=== PATIENT | male | born 1950 | race Caucasian/White ===

== ENCOUNTER → 2016-12-27 | Outpatient (CLI) | payer OTHER ==
--- NOTE | 2016-12-27 11:25 | DIAGNOSTIC IMAGING REPORT ---
BILATERAL KNEE RADIOGRAPHS CLINICAL HISTORY: Bilateral knee pain. COMPARISON: None FINDINGS: Right knee: There is mild lateral patellar tilt. Note is made of moderate to severe medial compartment joint space narrowing as well as moderate narrowing of the lateral aspect of the patellofemoral joint space with associated subchondral cystic change. There is no acute fracture or suspicious lesion. There is a possible small right knee joint effusion. Left knee: There is moderate medial compartment joint space narrowing. Subchondral cystic change/lucency is noted. There is no acute fracture or suspicious lesion. There is a small left knee joint effusion. IMPRESSION: Right knee: 1. Moderate to severe arthritis within the medial and patellofemoral compartments of the right knee. 2. Possible small right knee joint effusion. 3. No fracture. Left knee: 1. Moderate arthritis within the medial and patellofemoral compartment of the left knee. Subchondral lucencies, most evident within the medial compartment are likely related to arthritis. 2. Small left knee joint effusion. Electronically signed by: Margarito Perdomo M.D. 12/27/2016 11:24 AM Dictated Date/Time: 12/27/2016 11:20 AM
== END | disposition home or self-care (01) ==
LOC: C.RDSM 11:03
PROVIDERS: ATTEND Internal Medicine
DX: M17.0 Bilateral primary osteoarthritis of knee (principal)

== ENCOUNTER → 2017-10-26 | Outpatient (CLI) | payer OTHER | END | disposition home or self-care (01) | LOC: C.LABBC 10:43 | PROVIDERS: ATTEND Psychiatry & Neurology Neurology | DX: R27.0 Ataxia, unspecified (principal) ==

== ENCOUNTER → 2017-10-31 | Outpatient (CLI) | payer OTHER ==
[2017-10-31 11:16] LABS: BLOOD UREA NITROGEN 15 mg/dl (7-18); CREATININE 1.17 mg/dl (0.60-1.40)
== END | disposition home or self-care (01) ==
LOC: C.LABBC 08:34
PROVIDERS: ATTEND Psychiatry & Neurology Neurology
DX: Z00.00 Encounter for general adult medical examination without abnormal findings (principal)

== ENCOUNTER → 2017-11-05 | Outpatient (CLI) | payer OTHER ==
--- NOTE | 2017-11-05 08:26 | DIAGNOSTIC IMAGING REPORT ---
MRI OF THE BRAIN WITHOUT IV CONTRAST INTERNAL AUDITORY CANAL PROTOCOL CLINICAL HISTORY: Vertigo. Ataxia. COMPARISON STUDY: No priors. TECHNIQUE: MRI of the brain was performed utilizing various T1 and T2-weighted sequences in the axial, sagittal, and coronal planes. IV contrast was not administered for this examination. Additional high-resolution imaging was performed through the skull base without IV contrast to assess the internal artery canals. The patient became claustrophobic and could not physician the examination. Postcontrast imaging was not performed. FINDINGS: Brain parenchyma: There are age-related involutional changes noting mild subcortical and periventricular microangiopathic disease. There is no hemorrhage or mass effect. There is no restricted diffusion to suggest acute ischemia. Cobb-white matter differentiation is preserved. No extra-axial fluid collection is seen. The cerebellar tonsils are normal in configuration. Ventricles, sulci, and cisterns: Prominent secondary to involutional change. Pituitary and sella: Unremarkable. Interlobular canals: There is no evidence of mass lesion in the cerebellopontine angle or along the internal auditory canal bilaterally. The 7th and 8th cranial nerves are normal as visualized. The middle ear structures are grossly unremarkable. Intracranial vasculature: Normal flow voids are maintained at the skull base. Orbits: The bony orbits are grossly intact. Orbital contents are normal in appearance. Sinuses and mastoids: Clear. Calvarium: Unremarkable. Cervical cord: Partially visualized cervical spinal cord is normal in morphology and signal intensity. IMPRESSION: 1. The patient became claustrophobic and discontinued the examination. Contrast-enhanced sequences were not obtained. 2. No acute intracranial abnormality is seen. 3. Unremarkable unenhanced assessment of the internal auditory canals. Electronically signed by: Michael Hua M.D. 11/05/2017 8:25 AM Dictated Date/Time: 11/05/2017 8:16 AM
== END | disposition home or self-care (01) ==
LOC: C.MRI 07:25
PROVIDERS: ATTEND Psychiatry & Neurology Neurology
DX: R42 Dizziness and giddiness (principal); R27.0 Ataxia, unspecified

== ENCOUNTER 2019-08-27 06:08 | Inpatient (IN) ==
--- NOTE | 2019-08-05 16:08 | PAT Medication Instructions ---
Medication Instructions Date of Service August 05, 2019 Home Medications aspirin 81 mg PO QAM krill oil 500 mg PO QAM losartan-hydrochlorothiazide 1 tab PO HS omeprazole magnesium [Prilosec OTC] 20 mg PO QAM simvastatin 20 mg PO HS STOP taking 2 weeks before surgery (or as soon as possible if surgery is within 2 weeks) krill oil 500 mg PO QAM Take morning of surgery With a small sip of water, OTHERWISE NOTHING TO EAT OR DRINK AFTER MIDNIGHT: aspirin 81 mg PO QAM omeprazole magnesium [Prilosec OTC] 20 mg PO QAM Take evening before surgery losartan-hydrochlorothiazide 1 tab PO HS simvastatin 20 mg PO HS Other Notes If you have any questions please call us at [phone] or [phone] or [phone] or [phone]
--- NOTE | 2019-08-06 15:10 | Anesthesiology Consultation ---
Date of Service August 06, 2019 Assessment & Plan (1) Encounter for pre-operative examination: Chart Review Chart Review: Pending: Refer to Additional Notes / Consult section (pending preop testing (labs, EKG, CXR)) and Patient seen in Pre Admission Testing Teaching & Discussion Pre-Anesthesia Teaching/Discussion Notes: Instructed NPO after midnight before surgery,except medications with 15 cc of water. Medication instructions provid ed according to the PAT guidelines. History Surgery Operation Date: 08/27/19 07:00 Proposed Procedures p Right Total Knee Arthroplasty - Alton Vergara MD Height/Weight Height: 5 ft 9 in Weight: 93.8 kg Allergies Allergy/AdvReac Type Severity Reaction Status Date / Time No Known Allergies Allergy Verified 07/25/19 10:00 Medications Home Medications Medication Instructions Recorded Confirmed Last Taken aspirin 81 mg PO QAM 07/25/19 07/25/19 Unknown krill oil 500 mg PO QAM 07/25/19 07/25/19 Unknown losartan-hydrochlorothiazide 1 tab PO HS 07/25/19 07/25/19 Unknown omeprazole magnesium [Prilosec OTC] 20 mg PO QAM 07/25/19 07/25/19 Unknown simvastatin 20 mg PO HS 07/25/19 07/25/19 Unknown Past Medical History Medical History GERD (gastroesophageal reflux disease) controlled Gout Hyperlipidemia Hypertension Obesity Osteoarthritis Restless leg syndrome Sleep apnea "mild"- could not tolerate device Exercise / Class Metabolic Activity II 4-5 Yardwork/Stairs/Walk up hill (one flight of stairs (no chest pain, no sob)) Past Family History Family History Other No significant family history Past Surgical History Surgical History History of arthroscopy RT/LEFT KNEE History of colonoscopy History of esophagogastroduodenoscopy (EGD) [place] teeth removed Past Anesthesia History No Hx of Anesthesia Complications and No Family Hx of Anesthesia Complications History of PONV No Hx of PONV and Hx of Motion Sickness (+ vertigo) Social History Smoking Status: Never smoker Do You Dip or Chew Tobacco: No Hx Alcohol Use: Yes Alcohol type: hard liquor alcohol intake frequency: holidays/special occasions only Alcohol Intake Frequency Comment: MIXED DRINK Hx Substance Use: No substance use type: does not use Review of Systems Reflux controlled. Patient denies chest pain, shortness of breath, dyspnea on exertion, cough, wheezing, palpitations. Physical Exam Vital Signs VITALS BP 130/85 P 86 TEMP 97.9 SP02 93%RA RESP 18 PHYSICAL Full neck and c-spine range of motion. Full TMJ range of motion. TMD 3.5 finger breaths Mallampati Score 3 (small oral opening) Dentition: partial on upper, several caps Lungs: clear throughout to auscultation Cardiac: regular rate and rhythm, no murmurs noted Spine: normal Carotid arteries: negative bruit Extremities: no edema
--- NOTE | 2019-08-06 15:56 | XRay Report ---
XR chest Pre-admission PA/Lat CLINICAL HISTORY: 68 years-old Male presenting with preoperative evaluation. TECHNIQUE: PA and lateral views of the chest were obtained. COMPARISON: None. FINDINGS: Cardiac silhouette top normal in size. Opacity at the left apex on frontal view, which is not corrobo rated on the lateral. Lungs and pleural spaces otherwise clear. Degenerative changes of the thoracic spine. Upper abdomen normal. IMPRESSION: 1. Apparent opacity at the cardiac apex may relate to pericardial fat pad. No acute cardiopulmonary disease. Follow-up radiograph in 3-6 months could be obtained to ensure stability. Electronically signed by: Solitario Guillaume M.D. 08/06/2019 3:55 PM
[2019-08-06 15:57] LABS: Basophils # (auto) 0.06 K/uL (0-0.2); Basophils % (auto) 0.7 %; Eosinophils # (auto) 0.26 K/uL (0-0.5); Eosinophils % (auto) 3.2 %; Hematocrit (blood only) 46.1 % (42-52); Hemoglobin 16.4 g/dL (14.0-18.0); Immature Granulocytes # (auto) 0.01 K/uL (0.00-0.02); Immature Granulocytes % (auto) 0.1 %; Lymphocytes # (auto) 3.01 K/uL (1.2-3.4); Mean Corpuscular Hgb Conc 35.6 g/dL (32-36); Mean Platelet Volume 9.5 fL (7.4-10.4); Monocytes # (auto) 0.89 K/uL (0.11-0.59); Monocytes % (auto) 10.9 %; Neutrophils # (auto) 3.91 K/uL (1.4-6.5); Neutrophils % (auto) 48.1 %; Platelet Count 220 K/uL (130-400); RDW Coefficient of Variation 12.9 % (11.5-14.5); RDW Standard Deviation 42.4 fL (36.4-46.3); Red Blood Count 5.12 M/uL (4.7-6.1); White Blood Count 8.14 K/uL (4.8-10.8)
[2019-08-06 16:10] LABS: Calcium 9.5 mg/dl (8.5-10.1); Creatinine Clr Calc Pharmacy 68.8 ml/min; Est GFR (African American) 75.9; Est GFR (Non-African American) 65.5
[2019-08-06 16:13] LABS: Partial Thromboplastin Time 27.1 Seconds (21.0-31.0); Prothrombin Time 10.3 Seconds (9.0-12.0)
[2019-08-06 16:19] LABS: Appearance Urine Clear (Clear); Bilirubin Urine Negative (Negative); Blood Urine Negative (Negative); Color Urine Yellow; Glucose Urine UA Negative (Negative); Ketones Urine Negative (Negative); Leukocyte Esterase Urine Negative (Negative); Nitrite Urine Negative (Negative); Protein Urine Negative (Negative); Specific Gravity Urine 1.021 (1.000-1.030); Urobilinogen Urine Negative (Negative)
--- NOTE | 2019-08-12 16:38 | History and Physical Report ---
DATE OF ADMISSION: 08/27/2019 CHIEF COMPLAINT: Right knee pain. HISTORY OF PRESENT ILLNESS: This 68-year-old white male presents to the office with complaints of right knee pain that has been ongoing for several years. It was initially managed with corticosteroid injections and Tylenol as well as Meloxicam with fair relief. Those treatments are no longer working. Pain is worse with weightbearing. It is affecting his ADLs. He elects to proceed with right total knee arthroplasty in hopes of alleviating his discomfort. Preoperative imaging has been obtained. No numbness or tingling. No locking or buckling. Pain is worse medially. He elects to proceed with right total knee arthroplasty in hopes of alleviating his discomfort. PAST MEDICAL HISTORY: Significant for hypertension, elevated cholesterol, sleep apnea, GERD, osteoarthritis, actinic keratosis and history of gout. PREVIOUS SURGERIES: Right knee arthroscopy with meniscectomy in 2013, left knee arthroscopy with meniscectomy in 2003, colonoscopy x2. ALLERGIES: NKDA. CURRENT MEDICATIONS: Aspirin 81 mg daily, colchicine 0.6 mg p.o. daily, Flonase nasal spray 2 sprays in each nostril daily, HCTZ losartan 12.5 mg/50 mg p.o. daily, omeprazole 20 mg p.o. q.a.m., simvastatin 20 mg p.o. at bedtime. FAMILY HISTORY: Significant for CVA, hypertension, prostate cancer, and stroke. SOCIAL HISTORY: The patient is . Retired. No tobacco use. No ETOH use. REVIEW OF SYSTEMS: A total of 10 systems are reviewed and are significant only for above stated conditions. PHYSICAL EXAMINATION: GENERAL: Well-developed, well-nourished elderly white male in no acute distress. Sitting in a chair. Alert and oriented. SKIN: Warm and dry with good turgor. No rashes or lesions. No ecchymosis or erythema. HEENT: Normocephalic, atraumatic. Eyes PERRLA, EOMI. Nares patent bilaterally without turbinate enlargement. Oropharynx without erythema or exudate. No lesions noted. Uvula midline. Oral mucosa moist, fillings and caps are noted. Partial upper denture plate noted. HEART: RRR. No MGR. LUNGS: Clear to auscultation bilaterally. No crackles, rhonchi or wheezing. Good air movement. ABDOMEN: Bowel sounds present x4, soft, nontender. No organomegaly. No masses. MUSCULOSKELETAL: Right knee has no intra-articular effusion. Varus alignment. Stable collateral ligaments. He has focal discomfort with palpation over the medial and lateral joint lines. Medial is worst. No defect in the patellar tendon or quadriceps tendon. No crepitus with motion. Ambulates with a mildly antalgic gait. NEUROLOGIC: Gross sensation is intact across both lower extremities by soft touch. Peripheral pulses are 2+. Cranial nerves II-XII are intact. DATA: Radiographic imaging previously obtained shows bicompartmental DJD of the right knee. Medial is worst. Periarticular osteophytes, subchondral sclerosis, and joint space narrowing are all present. IMPRESSION: Right knee end-stage degenerative joint disease. PLAN: Postoperative prescriptions for Percocet and Coumadin will be provided at discharge from the hospital. Anticipate discharge to home with home health services. Preoperative lab work, EKG, and chest x-ray have been ordered. These will be done at the hospital. He has an appointment to see his PCP for medical clearance. He has access to a cane and walker already. Call with any other concerns.
[~2019-08-27 06:08] MED LIST: CEFAZOLIN 2000MG 2,000 MG/15 ML SYR IV SCH; LR 500ML BOLUS IV SCH; ROPIVACAINE 0.5% HCL/PF 150 MG, BUPIVACAINE 0.5% MPF 30 ML, EPINEPHrine 0.15 MG, Ketoro... INFIL SCH; TRANEXAMIC ACID 1,000 MG **IV Pre-op IV SCH
[2019-08-27] MEDS ORDERED: BUPIVACAINE 0.5 % 5 MG/1 ML PF 10ML VIAL ONE (06:24)
[2019-08-27] MEDS ORDERED: ROPIVACAINE 0.5% 5 MG/ML 30 ML VIAL ONE (06:25)
--- NOTE | 2019-08-27 06:36 | History & Physical Bridge Note ---
Date of Service August 27, 2019 History & Physical Bridge Note I have examined the patient, reviewed the History & Physical and in the interval since the performance of the History & Physical I have noted the following changes of clinical significance:consent obtained. no changes noted
[2019-08-27] MEDS: LR 60ML/HR IV SCH ×2 (06:38→06:57)
[2019-08-27] MEDS ORDERED: LIDOCAINE HCL 2% 2 ML VIAL/AMP(20MG/ML) INFIL ONE (07:35)
[2019-08-27] MEDS ORDERED: MIDAZOLAM HCL 1 MG/ML 2ML VIAL ONE (07:35)
[2019-08-27] MEDS ORDERED: PROPOFOL IV EMULSION 10 MG/ML 20 ML VIAL IV ONE (07:35)
[2019-08-27] MEDS ORDERED: HYDROmorphone INJ 1 MG/ML SYRINGE IV PRN (08:25)
[2019-08-27] MEDS ORDERED: ONDANSETRON INJ 2 MG/ML 2 ML VIAL IV PRN ×2 (08:25→12:06)
[2019-08-27] MEDS ORDERED: ePHEDrine sulfate 50 MG/ML AMP IV PRN (08:25)
[2019-08-27] MEDS ORDERED: ATROPINE SULFATE 0.1 MG/ML 10ML SYR IV PRN (08:25)
[2019-08-27] MEDS ORDERED: KETOROLAC 30 MG/ML VIAL IV PRN (08:25)
[2019-08-27] MEDS ORDERED: ORTHO JOINT ANESTHETIC ONE (08:57)
[2019-08-27] MEDS ORDERED: PHENYLEPHRINE 100MCG/ML 5ML SYR ONE (09:47)
[2019-08-27] MEDS ORDERED: ePHEDrine sulfate 50 MG/ML SYR ONE (09:47)
--- NOTE | 2019-08-27 10:42 | Post Operative Brief Note ---
Immediate Post Op Note v1 Date of Surgery August 27, 2019 Pre & Post Diagnosis Operation Date: 08/27/19 08:50 Pre-Op Diagnosis: Right Knee Degenerative Joint disease Post-Op Diagnosis: Right Knee Degenerative Joint disease I identified the patient and participated in the time-out.: Yes Procedure Operation Date: 08/27/19 08:50 Actual Procedures p Right Total Knee Arthroplasty(Right) - Alton Vergara MD Surgeon [facility] Blood Loss 25 Findings Consistent with Post-Op Diagnosis
--- NOTE | 2019-08-27 10:54 | Operative Report ---
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 He had tried conservative care measures including oral pain medication, oral anti-inflammatories, and activity modification, without significant relief. He elected to proceed with surgical intervention after being educated about potential risks and outcomes. Preoperative imaging was obtained. Description of Procedure Patient was administered a spinal anesthetic and then taken to the operating room where he was given sedation. He was prepped and draped in the usual sterile fashion. Please see Dr. Vergara's operative report for specifics of the procedure. I was present for the entire case from initial patient positioning through final wound closure. Assistance was provided in tissue retraction, hemostasis, trial implant placement, final implant placement, and final wound closure. Patient was taken to the recovery room in satisfactory condition. I attest to the content of the Intraoperative Record and any orders documented therein. Any exceptions are noted below.
--- NOTE | 2019-08-27 11:13 | Operative Report ---
DATE OF OPERATION: 08/27/2019 SURGEON: Alton Vergara MD. INSIDE METER TESTER: Dr. Maldonado. SECOND INSIDE METER TESTER: Tramaine Matthew PA-C. PREOPERATIVE DIAGNOSIS: Osteoarthritis with flexion varus deformity of the right knee. OPERATION PERFORMED: Cemented right total knee replacement. PERIOPERATIVE SITUATION: Medically cleared male with intractable bilateral knee pain, wants to start with a right total knee replacement. He has significant varus flexion deformity. His x-rays reveal tricompartmental disease. DESCRIPTION OF PROCEDURE: The patient was appropriately identified, site verified, consent verified. Antibiotics confirmed as being given. The right lower extremity was prepped and draped in usual routine fashion. Tourniquet inflated to 300 mmHg after exsanguination of limb with a rubber Esmarch bandage for a total of 53 minutes. Midline exposure utilized. Parapatellar arthrotomy performed. Synovectomy completed, osteophytes resected. Distal femur entered. Cruciates resected. Tibia subluxated. Both menisci resected. Femur then resected 12 mm, tibia then resected 4 mm, the extension gap was excellent. Distal femur was then sized between a 3 and a 4, was measured 4, cut 3. The tibia was a size 3. Flexion gap was good. Box cut was then made and the size 3 femur fit well, the size 3 tibial tray was then broached and reamed and then a 17.5 spacer fit very well at the end of the permanent size. That offered the most mid range stability with no extension loss. The patella was then sized to 38, it was resected leaving 15 mm. Seating holes made and the trial tracked well. Orthomix was injected posteriorly and along the anterior aspect of the joint. The wound was irrigated with Betadine and Pulsavac and then the permanent cemented in position in the order of tibia, femur and patella. After 12 minutes, the tourniquet was deflated. Minor bleeding points were controlled with electrocautery. After 14 minutes, the knee was then flexed. There was no cement removal required. The trial liner was removed, the permanent liner seated, knee reduced and closed in 30-40 degrees of flexion with #2 Vicryl, 2-0 Vicryl and stainless steel clips. Appropriate dressing applied. The patient was then transferred to recovery room in satisfactory condition having tolerated the procedure well. SUMMARY OF IMPLANTS: Size 3 right posterior cruciate substituting femur, mobile bearing tray size 3, size 3 spacer, posterior cruciate substituting 17.5 mm thick, oval dome 3 peg patella size 38, 2 bags of [place] G cement. ESTIMATED BLOOD LOSS: 25 mL. PATHOLOGY: Pending on bone. DEEP VENOUS THROMBOSIS PROPHYLAXIS: With Coumadin. CRYSTALLOID: Per anesthesia. I attest to the content of the Intraoperative Record and any orders documented therein. Any exception s are noted below.
--- NOTE | 2019-08-27 11:23 | Operative Report ---
Post Operative Report Pre & Post Diagnosis Operation Date: 08/27/19 08:50 Pre-Op Diagnosis: Right Knee Degenerative Joint disease Post-Op Diagnosis: Right Knee Degenerative Joint disease I identified the patient and participated in the time-out.: Yes Procedure Operation Date: 08/27/19 08:50 Actual Procedures p Right Total Knee Arthroplasty(Right) - Alton Vergara MD Surgeon Alton Vergara MD Nurse Gynecology Erica rojas Estimated Blood Loss 25 Findings Consistent with Post-Op Diagnosis Specimens as per procedure notes Complications none Disposition Accompanied Patient To Recovery: Yes Disposition: Recovery Room Description of Procedure Supine, standard prep and drape, tourniquet, time-out Right Total Knee Arthroplasty Please see Dr Vergara's procedure notes for specific details I was present throughout the case, assisted for wound closure and transferred the patient to PACU in stable condition I attest to the content of the Intraoperative Record and any orders documented t herein. Any exceptions are noted below.
--- NOTE | 2019-08-27 11:24 | Progress Note ---
DATE: 08/27/2019 SUBJECTIVE: Status post right total knee replacement. The patient denies any chest pain, shortness of breath, fever, chills, nausea, vomiting or headache. OBJECTIVE: Vital signs are stable, he is afebrile. Neurovascular check is limited by spinal is wearing off. Postop x-rays look excellent. ASSESSMENT: Doing well. Continue postop care pathway. Have case management see him prepared for discharge tomorrow. Deep venous thrombosis prophylaxis per protocol.
--- NOTE | 2019-08-27 11:26 | XRay Report ---
TWO VIEWS RIGHT KNEE CLINICAL HISTORY: Postoperative examination. FINDINGS: AP and crosstable lateral portable views of the right knee are obtained. A right knee arthr oplasty is in near anatomic alignment. There has been undersurface remodeling of the patella. No acut e fracture is seen. There are expected postoperative changes around the knee including skin clips, so ft tissue edema, and subcutaneous gas. IMPRESSION: Expected postoperative changes status post right knee arthroplasty. No acute fracture is seen. Electronically signed by: Michael Hua M.D. 08/27/2019 11:24 AM
--- NOTE | 2019-08-27 11:27 | Discharge Summary ---
DATE OF POTENTIAL DISCHARGE: 08/28/2019 CHIEF COMPLAINT: Right knee pain. HISTORY OF PRESENT ILLNESS: The patient underwent elective right total knee replacement. Hospital course has been uneventful to date. He tolerated the procedure well. Postop x-rays look excellent. He denies any chest pain, shortness of breath, fever, chills, nausea, vomiting or headache. PAST MEDICAL HISTORY: Remarkable for hypertension, elevated cholesterol, sleep apnea, GERD, osteoarthritis, actinic keratosis and history of gout. PAST SURGICAL HISTORY: Include right knee arthroscopy, meniscectomy, left knee arthroscopy, meniscectomy, colonoscopies. ALLERGIES: None. PREADMISSION MEDICATIONS: Include aspirin, colchicine, Flonase, hydrochlorothiazide, losartan, omeprazole, simvastatin. He will continue all those medications and add Coumadin to keep INR 1.8-2.2. FAMILY HISTORY: Remarkable for CVA, hypertension, prostate cancer and stroke. SOCIAL HISTORY: Reveals he is , retired. No tobacco or alcohol use. REVIEW OF SYSTEMS: As noted above is negative. ASSESSMENT: Postoperative x-rays look excellent, AP and lateral. ASSESSMENT: Clinically, doing well. Will discharge to home tomorrow. Case management to evaluate. Coumadin to keep INR 1.8-2.2.
--- NOTE | 2019-08-27 11:38 | Anesthesiology Progress Note ---
Date of Service August 27, 2019 Anesthesia Post Procedure Vital Signs Vital Signs: Temp Pulse Pulse Resp BP Pulse Ox 08/27/19 11:35 36.6 C 74 16 112/74 96 08/27/19 11:25 83 16 109/75 97 08/27/19 11:15 81 15 87/66 L 95 08/27/19 11:05 81 12 105/68 96 08/27/19 10:55 99 H 18 109/59 L 96 08/27/19 10:49 37.1 C 90 16 96/66 L 98 08/27/19 06:41 36.9 C 112 H 16 154/87 H 96 Pain Intensity Right Knee: Pain Intensity: 0 Transfer of Care Handoff Completed per policy Notes Mental Status: alert / awake / arousable Patient Amnestic to Procedure: Yes Nausea / Vomiting: adequately controlled Pain: adequately controlled Airway Patency, RR, SpO2: stable & adequate BP & HR: stable & adequate Hydration State: stable & adequate Anesthetic Complications: no major complications apparent
[2019-08-27] MEDS ORDERED: ALUMINUM/MAGNESIUM SUSP 30 ML UDC PO PRN (12:06)
[2019-08-27] MEDS ORDERED: DiphenhydrAMINE HCL 50 MG/ML VIAL IV PRN (12:06)
[2019-08-27] MEDS ORDERED: SODIUM CHLORIDE 0.9% 1000ML 1,000 ML IV SCH (12:06)
[2019-08-27] MEDS ORDERED: HYDROmorphone INJ 0.5 MG/0.5 ML SYR IV PRN (12:06)
[2019-08-27] MEDS ORDERED: BISACODYL 10 MG SUPP PR PRN (12:06)
[2019-08-27] MEDS ORDERED: TAMSULOSIN HCL 0.4 MG CAP PO PRN (12:06)
[2019-08-27] MEDS ORDERED: NALOXONE HCL 0.4 MG/1 ML VIAL/CARP IV PRN (12:06)
[2019-08-27] MEDS ORDERED: METOCLOPRAMIDE HCL INJ 5 MG/ML 2 ML VIAL IV PRN (12:06)
[2019-08-27] MEDS ORDERED: MAGNESIUM HYDROXIDE SUSP 30 ML UDC PO PRN (12:06)
[2019-08-27] MEDS ORDERED: OXYCODONE HCL IR 5 MG TAB (IMMEDIATE RELEASE) PO PRN (12:06)
[2019-08-27] MEDS: ORTHO WARFARIN NOMOGRAM SCH (12:45)
[2019-08-27] MEDS: KETOROLAC TROMETHAMINE 15 MG/ML VIAL IV SCH ×2 (13:00→18:18)
[2019-08-27] MEDS: ACETAMINOPHEN 500 MG TAB PO SCH ×2 (13:00→21:34)
[2019-08-27] MEDS ORDERED: WARFARIN SOD 5 MG TAB PO SCH (16:00)
[2019-08-27] MEDS ORDERED: TRANEXAMIC ACID 1,000 MG in 0.9 % SODIUM CHLORIDE 100 ML IV SCH (16:56)
[2019-08-27] MEDS: CEFAZOLIN 2000MG 2,000 MG/15 ML SYR IV SCH (17:20)
[2019-08-27] MEDS: FERROUS GLUCONATE 324 MG TAB PO SCH (18:18)
[2019-08-27] MEDS: ASCORBIC ACID 500 MG TAB PO SCH (18:18)
[2019-08-27] MEDS ORDERED: SENNA 8.6 MG TAB PO SCH (21:00)
[2019-08-27] MEDS ORDERED: LOSARTAN/HCTZ 50/12.5MG TAB PO SCH (21:00)
[2019-08-27] MEDS ORDERED: SIMVASTATIN 20 MG TAB PO SCH (21:00)
[2019-08-27] MEDS: DOCUSATE SODIUM 100 MG CAP PO SCH (21:33)
[2019-08-28] MEDS: CEFAZOLIN 2000MG 2,000 MG/15 ML SYR IV SCH (01:57)
[2019-08-28] MEDS: ACETAMINOPHEN 500 MG TAB PO SCH (06:12)
[2019-08-28] MEDS: KETOROLAC TROMETHAMINE 15 MG/ML VIAL IV SCH ×2 (06:13)
[2019-08-28 06:14] LABS: Hematocrit (blood only) 39.3 % (42-52); Hemoglobin 13.7 g/dL (14.0-18.0); Mean Corpuscular Hemoglobin 31.3 pg (25-34); Mean Corpuscular Hgb Conc 34.9 g/dL (32-36); Mean Corpuscular Volume 89.7 fL (80-100); Mean Platelet Volume 9.6 fL (7.4-10.4); Platelet Count 211 K/uL (130-400); RDW Coefficient of Variation 12.7 % (11.5-14.5); RDW Standard Deviation 41.2 fL (36.4-46.3); Red Blood Count 4.38 M/uL (4.7-6.1); White Blood Count 16.96 K/uL (4.8-10.8)
[2019-08-28 06:20] LABS: INR 1.1 (0.9-1.1)
[2019-08-28 06:48] LABS: BUN Creatinine Ratio 18.5 (10-20); Calcium 9.3 mg/dl (8.5-10.1); Creatinine Clr Calc Pharmacy 72.1 ml/min; Est GFR (African American) 81.1; Potassium 3.8 mmol/L (3.5-5.1)
[2019-08-28] MEDS ORDERED: dexAMETHasone 10 MG in SYRINGE 0 ML IV SCH (08:00)
[2019-08-28] MEDS: FERROUS GLUCONATE 324 MG TAB PO SCH (08:04)
[2019-08-28] MEDS: ASCORBIC ACID 500 MG TAB PO SCH (08:04)
[2019-08-28] MEDS: DOCUSATE SODIUM 100 MG CAP PO SCH (08:04)
--- NOTE | 2019-08-28 08:24 | Progress Note ---
DATE: 08/28/2019 SUBJECTIVE: Postop day #1 status post right total knee replacement. The patient is in good spirits. He denies any chest pain, shortness of breath, fever, chills, nausea, vomiting or headache. OBJECTIVE: Vital signs are stable. He is afebrile. Hematocrit stable at 39 range. INR is 1.1. Wound dressing clean, dry and intact. Dressing reinforced with a new Kerlix of the original deep dressing on since there was no drainage and put [place] DONALD stocking on. He will keep that on until Sunday. ASSESSMENT: Coumadin per nomogram today. Discharge on 4 mg Coumadin. Follow up in 2 weeks for staple removal. Knee immobilizer for another 24-48 hours when he is comfortable, bearing full weight. Continue with heel prop extension exercises and range of motion to tolerance up to 90 degrees. A formal PT roughly 10-14 days.
[2019-08-28] MEDS: ORTHO WARFARIN NOMOGRAM SCH (08:50)
[2019-08-28] MEDS ORDERED: MULTIVITAMIN TAB PO SCH (09:00)
[2019-08-28] MEDS ORDERED: ASPIRIN 81 MG ECTAB PO SCH (09:00)
[2019-08-28] MEDS ORDERED: WARFARIN SOD 5 MG TAB PO SCH (16:00)
== END 2019-08-28 10:33 | disposition home health service (06) | DRG 470 ==
LOC: ASU 06:08 → 3E 10:56

== ENCOUNTER 2024-07-07 06:55 | Observation (INO) ==
--- NOTE | 2024-06-03 10:23 | PAT Medication Instructions ---
Medication Instructions Date of Service June 03, 2024 Home Medications aspirin 81 mg tablet,delayed release 81 mg PO QAM omeprazole magnesium 20 mg tablet,delayed release (Prilosec OTC) 20 mg PO QAM hydrochlorothiazide 12.5 mg tablet 12.5 mg PO HS losartan 50 mg tablet 50 mg PO HS ciclopirox 8 % topical solution 1 applic topical DAILY PRN fluticasone propionate 50 mcg/actuation nasal spray,suspension 2 spray intranasal DAILY PRN krill 350 mg-omega-3 90 mg-dha 24 mg-epa 50 [id number] capsule 1 cap PO QAM multivitamin 1 tab PO QAM simvastatin 20 mg tablet 20 mg PO HS Continue as directed fluticasone propionate 50 mcg/actuation nasal spray,suspension 2 spray intranasal DAILY PRN(if needed) ASK your prescriber and surgeon aspirin 81 mg tablet,delayed release 81 mg PO QAM STOP taking 2 weeks before surgery (or as soon as possible if surgery is within 2 weeks) krill 350 mg-omega-3 90 mg-dha 24 mg-epa 50 [id number] capsule 1 cap PO QAM STOP taking 24 hours before surgery ciclopirox 8 % topical solution 1 applic topical DAILY PRN DO NOT take the morning of surgery multivitamin 1 tab PO QAM Take morning of surgery With a small sip of water, OTHERWISE NOTHING TO EAT OR DRINK AFTER MIDNIGHT: omeprazole magnesium 20 mg tablet,delayed release (Prilosec OTC) 20 mg PO QAM Take evening before surgery hydrochlorothiazide 12.5 mg tablet 12.5 mg PO HS losartan 50 mg tablet 50 mg PO HS simvastatin 20 mg tablet 20 mg PO HS Other Notes If you have any questions please call us at [phone] or [phone] or [phone] or [phone]
--- NOTE | 2024-06-10 10:30 | Anesthesiology Consultation ---
Date of Service June 10, 2024 Assessment & Plan (1) Encounter for pre-operative examination: - awaiting PCP clearance with Ashanti Jean PA-C. - Case discussed in detail with Dr. Owens who agreed with patient needing a PCP clearance prior to surgery. Surgeon's office and patient made aware. Patient denied questions or concerns. - Outpatient joint assessment: Patient is currently scheduled for inpatient pathway. If re-evaluated and patient/surgeon requests outpatient pathway, patient is not ideal candidate for outpatient joint program from anesthesia standpoint. Chart Review Chart Review: Pending: Refer to Additional Notes / Consult section and Patient seen in Pre Admission Testing Teaching & Discussion Pre-Anesthesia Teaching/Discussion Notes: Instructed NPO after midnight before surgery, except medications with 15 cc of water. Medication instructions provided according to the PAT guidelines. History Surgery Operation Date: 07/07/24 09:00 Proposed Procedures p Left Total Knee Arthroplasty - Xavier Rucker, Height/Weight Height: 5 ft 9 in Weight: 89.9 kg Allergies Allergy/AdvReac Type Severity Reaction Status Date / Time No Known Allergies Allergy Verified 05/30/24 09:03 Medications Home Medications Medication Instructions Recorded Confirmed Last Taken aspirin 81 mg tablet,delayed 81 mg PO QAM 07/25/19 05/30/24 08/24/19 08:00 release omeprazole magnesium 20 mg 20 mg PO QAM 07/25/19 05/30/24 08/26/19 22:00 tablet,delayed release (Prilosec OTC) hydrochlorothiazide 12.5 mg tablet 12.5 mg PO HS 10/09/23 05/30/24 Unknown losartan 50 mg tablet 50 mg PO HS 10/09/23 05/30/24 Unknown ciclopirox 8 % topical solution 1 applic topical DAILY PRN Toe 05/30/24 05/30/24 Unknown Fungus fluticasone propionate 50 2 spray intranasal DAILY PRN 05/30/24 05/30/24 Unknown mcg/actuation nasal Congestion spray,suspension krill 350 mg-omega-3 90 mg-dha 24 1 cap PO QAM 05/30/24 05/30/24 Unknown mg-epa 50 mj-hxhznbw-wimhq capsule multivitamin 1 tab PO QAM 05/30/24 05/30/24 Unknown simvastatin 20 mg tablet 20 mg PO HS 05/30/24 05/30/24 Unknown Past Medical History Medical History GERD (gastroesophageal reflux disease) controlled, stable per pt Hx of basal cell carcinoma (~2022) nose-s/p excision Hx of gout "No attack for 4-5 years" Hx of syncope 10/2023 "Had testing completed (30 day monitor) and was all normal." denies additional episodes of syncope. Hyperlipidemia Hypertension controlled, stable per pt Obesity Osteoarthritis Restless leg syndrome Sleep apnea "mild"- no device Patient denies h/o stroke, seizures, heart attack, heart failure, DM, blood clots/DVTs or blood transfusions. Exercise / Class Metabolic Activity II 4-5 Yardwork/Stairs/Walk up hill (denies chest discomfort or shortness of breath with one flight of stairs) Past Family History Family History Other No significant family history Past Surgical History Surgical History History of arthroplasty of right knee History of arthroscopy Bilateral knees History of colonoscopy History of esophagogastroduodenoscopy (EGD) Hx of eye surgery Right - Retina [place] teeth removed Past Anesthesia History No Hx of Anesthesia Complications and No Family Hx of Anesthesia Complications History of PONV No Hx of PONV and Hx of Motion Sickness Social History Smoking Status: Never smoker Do You Dip or Chew Tobacco: No Hx Alcohol Use: No Hx Substance Use: No substance use type: does not use Review of Systems Patient denies chest pain, shortness of breath, dyspnea on exertion, fever, chills, cough, wheezing, or palpitations. Physical Exam Vital Signs Vitals BP 132/82 P 105 (Patient states often has elevated HR in clinical settings due to anxiety) TEMP 98.5 SP02 95% on RA RESP 18 Physical Patient resting comfortably in chair in no acute distress, alert and oriented, responding appropriately throughout visit Full cervical extension range of motion without pain TMD 3.5 finger breadths Mallampati Score 2 Dentition: removable partial and several caps, denies chipped or loose teeth, crowns, implants or bridges Lungs: normal respiratory effort. Good air movement, clear throughout to auscultation, no adventitious breath sounds Cardiac: regular rate and rhythm, no murmurs noted Carotid arteries: negative bruit bilat Lab Results Anesthesia Preop Results Results Anesthesia Widget: 2 WBC 6.26 K/ul (4.8-10.8) 06/10/24 Hgb 16.8 g/dl (14.0-18.0) 06/10/24 Hct 48.8 % (42.0-52.0) 06/10/24 Plt 261 K/uL (130-400) 06/10/24 Na 139 mmol/L (136-145) 06/10/24 K 4.2 mmol/L (3.5-5.1) 06/10/24 Cl 103 mmol/L (98-107) 06/10/24 CO2 27 mmol/L (21-32) 06/10/24 BUN 16 mg/dl (6-23) 06/10/24 Creat 1.04 mg/dl (0.6-1.4) 06/10/24 Glucose Level 115 mg/dl (70-99(Fasting)) H 06/10/24 PT 10.6 Seconds (9.0-12.0) 06/10/24 PTT 29 Seconds (21-31) 06/10/24 INR 1.0 (0.9-1.1) 06/10/24 Blood Type A Positive 06/10/24 Antibody Screen NEGATIVE 06/10/24 Testing Electrocardiogram Date: 10/08/23 NSR, rate 77 bpm Incomplete RBBB Minimal voltage criteria for LVH, may be normal variant Chest X-Ray Date: 06/10/24 No acute cardiopulmonary findings. Echocardiogram Date: 10/09/23 EF 65% No LV regional wall motion abnormalities No LVH Grade I diastolic dysfunction Mild tricuspid regurgitation Mildly elevated pulmonary artery pressures, PASP 36 mmHg Lipomatous hypertrophy of the atrial septum Other Testing Head and neck CTA 10/08/[address] neck[address] Negative [address] angiogram of the head. Cardiac event monitor 11/09/23 NSR with rare asymptomatic PVCs
[~2024-07-07 06:55] MED LIST changes: +BUPIVACAINE 0.5 % 5 MG/1 ML PF 10ML VIAL ONE; -CEFAZOLIN 2000MG 2,000 MG/15 ML SYR IV SCH; -LR 500ML BOLUS IV SCH; +ROPIVACAINE 0.5% 5 MG/ML 30 ML VIAL ONE; -ROPIVACAINE 0.5% HCL/PF 150 MG, BUPIVACAINE 0.5% MPF 30 ML, EPINEPHrine 0.15 MG, Ketoro... INFIL SCH; -TRANEXAMIC ACID 1,000 MG **IV Pre-op IV SCH
--- OUTSIDE RECORDS SUMMARY | 2024-07-07 07:15 | External Medical Summary | Continuity of Care Document ---
Author Name Unknown Organization [facility] [address] [place], [place] [id number] Care Team Providers Care Film Crew Member Name Role Phone Ashanti Jean Primary Care Physician [phone] Encounter [facility] [id number] Date(s): 06/26/24 - 06/26/24 [facility] [address] [facility] [address] [facility] [address] [place], [place] [phone] Discharge Disposition: Home or Self Care Attending Physician: ALBERTO Jean Jessica A Referring Physician: ALBERTO Jean Jessica A Allergies, Adverse Reactions, Alerts No Known Allergies Immunizations Given and Recorded Vaccine Date Status Refusal Reason SARS-CoV-2 (COVID-19) mRNA-vacc - [id number] 08/11/23 Recorded SARS COVID Vaccine Unspecified 1 03/27/23 Recorded SARS-CoV-2 mRNA (Pfizer 12+) bivalent 09/20/22 Rec orded influenza virus vaccine, inactivated 06/13/22 Give n influenza virus vaccine, inactivated 08/14/19 Give n influenza virus vaccine, inactivated 10/21/18 Give n influenza virus vaccine, inactivated 06/11/17 Give n influenza virus vaccine, inactivated 07/06/15 Give n SARS-CoV-2 (COVID-19) mRNA-1273 vaccine 2 01/11/22 Recorded SARS-CoV-2 (COVID-19) mRNA-1273 vaccine 3 07/27/21 Recorded SARS-CoV-2 (COVID-19) mRNA-1273 vaccine 12/14/20 R ecorded SARS-CoV-2 (COVID-19) mRNA-1273 vaccine 11/16/20 G iven pneumococcal 23-valent vaccine 05/23/21 Given pneumococcal 23-valent vaccine 08/31/14 Recorded pneumococcal 13-valent vaccine 07/18/16 Given tetanus/diphtheria/pertuss, acel (Tdap) 07/06/15 G iven zoster vaccine live 04/10/11 Recorded diphtheria/tetanus/pertuss, acel (DTaP) 10/03/04 R ecorded 1Result Comment: [facility] 2Result Comment: 2022-06-13: Historical information-source unspecified 3Result Comment: 2022-06-13: Historical information-source unspecified Medications aspirin 325 mg oral delayed release tablet Start: 10/23/23 11:39:00 AM EST, 1 tab, PO, Daily, Disp# 30 Start Date: 10/23/23 Status: Ordered Flomax 0.4 mg oral capsule Start: 06/26/24 9:55:00 AM EDT, 1 cap, PO, Daily, Disp# 90 cap, Refills: 3, 30 minutes after the same meal, Pharmacy: [facility] [place] [id number] Start Date: 06/26/24 Stop Date: 06/21/25 Status: Ordered Flonase 50 mcg/inh nasal spray Start: 11/22/23 12:06:00 PM EST, 2 spray, each nostril, Daily, Disp# 1 each, Refills: 5, Pharmacy: [facility] [place] [id number] Start Date: 11/22/23 Stop Date: 05/20/24 Status: Ordered hydroCHLOROthiazide 12.5 mg oral tablet Start: 08/07/23 3:40:00 PM EST, 1 tab, PO, Daily, Disp# 90 tab, Refills: 3, [facility]acy: [id number] Start Date: 08/07/23 Status: Ordered losartan 50 mg oral tablet Start: 01/11/24 8:02:00 AM EDT, See Instructions, Disp# 90 tab, Refills: 3, take 1 tablet by mouth once daily, Pharmacy: [facility] [place] [id number] Start Date: 01/11/24 Status: Ordered PriLOSEC OTC 20 mg oral delayed release tablet Start: 01/17/16 9:58:00 AM EDT, 1 tab, PO, qAM Start Date: 01/17/16 Status: Ordered simvastatin 20 mg oral tablet Start: 01/11/24 8:02:00 AM EDT, See Instructions, Disp# 90 tab, Refills: 3, take 1 tablet by mouth at bedtime, Pharmacy: [id number] Start Date: 01/11/24 Status: Ordered Problem List Condition Confirmation Course Effective Dates Status H ealth Status Informant AK (actinic keratosis) Confirmed Active Benign hypertension without congestive heart failure Confirmed Active BPPV (benign paroxysmal positional vertigo) Confirmed Active Changing skin lesion Confirmed Active GERD (gastroesophageal reflux disease) Confirmed Active Gout Confirmed Active History of actinic keratoses Confirmed Active History of basal cell carcinoma of skin Confirmed Active Hx-TIA (transient ischemic attack) Confirmed Active Hyperlipidemia Confirmed Active Hypertension Confirmed Active Status post right knee replacement Confirmed Active Lentigo Confirmed Active Lesion of eye Confirmed Active Melanocytic nevus of trunk Confirmed Active Actinic keratoses Confirmed Active BPH associated with nocturia Confirmed Active Onychomycosis Confirmed Active Bilateral primary osteoarthritis of knee Confirmed Active High pulmonary arterial pressure Confirmed Active Seborrheic keratosis Confirmed Active Seborrheic keratoses Confirmed Active Skin tag Confirmed Active Apnea, sleep Confirmed Active Actinic elastosis Confirmed Active Weight disorder Confirmed Active Procedures Procedure Date Related Diagnosis Body Site Status Shave biopsy and cauterization of skin 02/14/23 Completed Colonoscopy 1 01/30/22 Completed Eye examination 2 12/14/21 Complet ed Knee arthroplasty, right 3 08/27/19 Completed Ultrasound 4 10/25/18 Completed MRI of head 5 11/05/17 Completed Colonoscopy 6, 7 10/19/16 Complete d History of knee surgery 8 08/01/14 Completed Colonoscopy 9 10/01/12 Completed History of knee surgery 10 07/01/03 Completed Mohs micrographic surgery Completed [facility] [place] Impression: 1. Hemorrhoids found on perianal exam 2. One 5 mm polyp in the distal transerse colon, removed with a cold biopsy forceps. Resected and retrieved 3. Diverticulosis in the sigmoid colon 4. Internal hemorrhoids Repeat in 5 years for surveillance 2[facility] Impression: 1. Repaired retinal detachment with single break OD. Retina remains attached 2. Treated horseshoe tear of retina wihtout detachment OS. Well lasered, retina attached. No new retinal tears seen on exam 3. Epiretinal membrane OD. Membrane is not visually significant 4. Stable choroidal nevus OS. Nevus looks stable, no change from photos and/or exam 5. Posterior vitreous detachment OS. No retinal detachment or retinal tear noted 6. Posterior capsular opacity OU. No retinal contraindication to YAG capsulotomy 7. Pseudophakia OU (2019) 3[facility] 4Biliary Ultrasound Impression: 1. Increased hepatic echogenicity. This a nonspecific finidng most often seen in hepatic steastosis. 2. Otherwise normal biliary ultrasound. 5[facility] Impression: 1. The patient became claustrophobic and discontinued the examination. Contrast- enhanced sequences were not obtained 2. No acute intracranial abnormality is seen 3. Unremarkable enhanced assessment of the internal auditory canals 6[facility] Impression: 1. Non bleeding internal hemorrhoids 2. One 4 mm polyp at 60 cm proximal to the anus, removed with a cold biopsy forceps. Resected and retreived. 3. Two 2 to 3 mm polyps at 40 cm proximal to the anus 7hyperplastic polyp; repeat in 5 years (Nov 2021) 8medial menisectomy 9internal hemorrhoids, polyp 10medial menisectomy, left knee Results Laboratory List Name Date Comprehensive Metabolic Panel (COMP META B PANEL) 06/26/24 Lipid Profile (LIPOPROTEINS) 06/26/24 Prostate Specific Antigen (PSA, TOTAL) Thyroid Stimulating Hormone (TSH) 4 Uric Acid Level (URIC ACID) 06/26/24 Most recent to oldest [Reference Range]: 1 eGFR CKD-EPI [>60 mL/min/1.73 m2] 83 mL/ min/1.73 m2 1 (06/26/24 10:17 AM) Non-HDL 81 mg/dL 2 (06/26/24 10:17 AM) PSA, Total [<6.51 ng/mL] 1.41 ng/mL (06/26/24 10:17 AM) Estimated CrCl 74.64 mL/min (06/26/24 11:02 AM) Anion Gap [5-14 mmol/L] 8 mmol/L (06/26/24 10:17 AM) Alb [3.5-5.0 g/dL] 4.2 g/dL (06/26/24 10:17 AM) Alk Phos [38-126 unit/L] 64 unit/L (06/26/24 10:17 AM) ALT [<50 unit/L] 47 unit/L (06/26/24 10:17 AM) AST [15-46 unit/L] 43 unit/L (06/26/24 10:17 AM) BUN [7-20 mg/dL] 14 mg/dL (06/26/24 10:17 AM) Ca [8.4-10.2 mg/dL] 9.4 mg/dL (06/26/24 10:17 AM) Chol/HDL 3 (06/26/24: AM) Chol [125-200 mg/dL] 116 mg/dL *LOW* (06/26/24: AM) Cl- [96-107 mmol/L] 106 mmol/L (06/26/24: AM) HCO3 [22-30 mmol/L] 26 mmol/L (06/26/24 10: AM) Cret [0.70-1.30 mg/dL] 0.95 mg/dL (06/26/24 10: AM) Glu [74-106 mg/dL] 113 mg/dL *HI* (06/26/24: AM) HDL [>35 mg/dL] 35 mg/dL *LOW* (06/26/24: AM) K [3.5-5.1 mmol/L] 4.0 mmol/L (06/26/24 10:17 AM) LDL Chol, Calculated [50-130 mg/dL] 56 m g/dL (06/26/24: AM) Na [137-145 mmol/L] 140 mmol/L (06/26/24: AM) T Bili [0.2-1.3 mg/dL] 1.0 mg/dL (06/26/24: AM) Prot [6.3-8.2 g/dL] 7.6 g/dL (06/26/24 10: AM) TG [<200 mg/dL] 124 mg/dL (06/26/24 10:17 AM) TSH [0.47-4.68 uIU/mL] 1.88 uIU/mL 3 (06/26/24 10:17 AM) Uric Acid [3.5-8.5 mg/dL] 6.4 mg/dL 4 (06/26/24 10:17 AM) 1Result Comment: Testing Performed By: [facility] [address], [address], [place] [address] 2Result Comment: Testing Performed By: Dept of Pathology [facility] [address], [address], [place] [address] 3Result Comment: Testing Performed By: Dept of Pathology [facility] [address], [address], [place] [address] 4Result Comment: Testing Performed By: Dept of Pathology [facility] [address], [address], [place] [address] Social History Social History Type Response Smoking Status Never smoked cigaret nia Sex Male Sex Representation Male (finding) Patient Care team information Care Team Personnel Name: ALBERTO Jean, Ashanti Zavala Position: Physician Asst Exmpt - Family Med Member Role: Primary Care Provider Address: [address] [place] [address] [address] [place] [address] [place] Care Team Related Persons Name: CORY FRAZIER
--- OUTSIDE RECORDS SUMMARY | 2024-07-07 07:15 | External Medical Summary | Continuity of Care Document ---
Author Name Unknown Organization [facility] [address] [facility] Address [address] [place] [address] [phone] Care Team Providers Care Mechanical Facilities Technician Name Role Phone Ashanti Jean Primary Care Physician [phone] [id number] Date(s): 06/26/24 - 06/26/24 [facility] [address], [facility] [address] [place] [address] [phone] Encounter Diagnosis Benign hypertension without congestive heart failure(Discharge Diagnosis) - 06/26/24 GERD (gastroesophageal reflux disease)(Discharge Diagnosis) - 06/26/24 Gout(Discharge Diagnosis) - 06/26/24 Hx-TIA (transient ischemic attack)(Discharge Diagnosis) - 06/26/24 Hyperlipidemia(Discharge Diagnosis) - 06/26/24 BPH associated with nocturia(Discharge Diagnosis) - 06/26/24 Osteoarthritis of left knee(Discharge Diagnosis) - 06/26/24 Discharge Disposition: Home or Self Care Attending Physician: ALBERTO Jean Jessica A Allergies, Adverse Reactions, Alerts No Known Allergies Assessment and Plan Extracted from: Title:annual follow up Author:ALBERTO Jean J essica A Date:06/26/24 1.Benign hypertension with out congestive heart failure Benign HTN without congestive heart failure is chronic and well controlled. Goal SBP <130and DBP <80mmHg. Continue losartan 50 mg daily and HCTZ 12.5 mg daily. Last clinic note and June2024 labs reviewed today. Updated CMP, lipid profileand TSH level ordered. He would like to follow-up annually andhe was advised to check his blood pressure periodicallyoverthe next several months and contact the office if BP readings are consistently above goal. 2.GERD (gastroesophageal reflux disease) GERD is chronic and well controlled with use of OTC omeprazole 20 mg, 1 tab p.o. daily as needed. No alarm symptoms. Continue current regimen. 3.Gout Gout is chronic and well-controlled without prophylactic therapy. Goal is to prevent recurrence of symptoms. He does have a prescription forfor colchicine to useif needed. Uric acid level ordered. 4.Hx-TIA (transient ischemic attack) Patient did have a history of a TIAlike episode in winter 2022 with an extensive workup that was negative. He was also evaluated by cardiology who could not find sourceof symptoms. He will plan to follow back up and consider loop recorder if he would experience another episode in the future. Prior clinic notes reviewed. 5.Hyperlipidemia Hyperlipidemia is chronic and well controlled with simvastatin 20 mg, 1 tab p.o. daily. Goal LDL is <100.Lipid profile results from June 2023 reviewed today and LDL is stable at 68.Updated lipid profile and CMP ordered. 6.BPH associated with nocturia BPHwith nocturia is chronic and uncontrolled. Goal is resolution of symptoms. He did decline a CARLOZ today. Updated PSA level ordered. Urinalysis was negative last year and he has no signs of infection today. He is agreeable to trying medication. Start tamsulosin 0.4 mg, 1 tab p.o.daily. Advised that if he is not seeingdesired improvementwithin a few weeks he may increase to 2 tabs p.o. daily. Discussed trying to reduce intake of fluids, specifically caffeine and EtOH in the evening hours. Discussed that if he is not getting relief fromtamsulosin we could try addingfinasteride or dutasteride; or urology referral.Discussed potential side effects of the medication, including, but not limited to: Dizziness, lightheadedness, hypotension, GI upset, allergic reaction. He will plan to update me via the portal withhow he is feeling in the next 1 to 2 months. Declined follow-up appointment. 7.Osteoarthritis of left knee Osteoarthritis of the left knee is chronic and uncontrolled. Goal is improvement in pain and quality of life. He is scheduled for a TKA in the near futurewith Dr. Rucker. Immunizations Given and Recorded Vaccine Date Status Refusal Reason SARS-CoV-2 (COVID-19) mRNA-vacc - [id number] 08/11/23 Recorded SARS COVID Vaccine Unspecified 1 [...] (DTaP) 10/03/04 R ecorded 1Result Comment: [facility] 2Result Comment: 2022-06-13: Historical information-source unspecified 3Result Comment: 2022-06-13: Historical information-source unspecified Medications aspirin 325 mg oral delayed release tablet Start: 10/23/23 11:39:00 AM EST, 1 tab, PO, Daily, Disp# 30 Start Date: 10/23/23 Status: Ordered Flomax 0.4 mg oral capsule Start: 06/26/24 9:55:00 AM EDT, 1 cap, PO, Daily, Disp# 90 cap, Refills: 3, 30 minutes after the same meal, Pharmacy: [facility] Start Date: 06/26/24 Stop Date: 06/21/25 Status: Ordered Flonase 50 mcg/inh nasal spray Start: 11/22/23 12:06:00 PM EST, 2 spray, each nostril, Daily, Disp# 1 each, Refills: 5, Pharmacy: [facility] Start Date: 11/22/23 Stop Date: 05/20/24 Status: Ordered hydroCHLOROthiazide 12.5 mg oral tablet Start: 08/07/23 3:40:00 PM EST, 1 tab, PO, Daily, Disp# 90 tab, Refills: 3, [facility]: [id number] Start Date: 08/07/23 Status: Ordered losartan 50 mg oral tablet Start: 01/11/24 8:02:00 AM EDT, See Instructions, Disp# 90 tab, Refills: 3, take 1 tablet by mouth once daily, Pharmacy: [facility] Start Date: 01/11/24 Status: Ordered PriLOSEC OTC 20 mg oral delayed release tablet Start: 01/17/16 9:58:00 AM EDT, 1 tab, PO, qAM Start Date: 01/17/16 Status: Ordered simvastatin 20 mg oral tablet Start: 01/11/24 8:02:00 AM EDT, See Instructions, Disp# 90 tab, Refills: 3, take 1 tablet by mouth at bedtime, Pharmacy: [facility] Start Date: 01/11/24 Status: Ordered Mental Status 06/26/24 Barriers to Learning one year None evide nt Mandatory Health Literacy Documentation Yes Health Literacy Communication Barriers N ever Primary Language Occ[place] Problem List Condition Confirmation Course Effective Dates [...] elastosis Confirmed Active Weight disorder Confirmed Active Diagnosis Diagnosis Type Effective Dates Health Status Clinical Service Informant Benign hypertension without congestive heart failure Discharge Diagnosis 06/26/24 Non-Specified GERD (gastroesophageal reflux disease) Discharge Diagnosis 06/26/24 Non-Specified Hx-TIA (transient ischemic attack) Discharge Diagnosis 06/26/24 Non-Specified Hyperlipidemia Discharge Diagnosis 06/26/24 Non-Specified BPH associated with nocturia Discharge Diagnosis 06/26/24 Non-Specified Osteoarthritis of left knee Discharge Diagnosis 06/26/24 Non-Specified Gout Discharge Diagnosis 06/26/24 Non-Specified Procedures Procedure Date Related Diagnosis Body Site [...] 10 07/01/03 Completed Mohs micrographic surgery Completed [facility] Impression: 1. Hemorrhoids found on perianal exam 2. One 5 mm polyp in the distal transerse colon, removed with a cold biopsy forceps. Resected and retrieved 3. Diverticulosis in the sigmoid colon 4. Internal hemorrhoids Repeat in 5 years for surveillance [facility] Impression: 1. Repaired retinal detachment [...] to YAG capsulotomy 7. [facility] Impression: 1. Increased hepatic echogenicity. This a nonspecific finidng most often seen in hepatic steastosis. 2. Otherwise normal biliary ultrasound. [facility]: 1. The patient became claustrophobic and discontinued the examination. Contrast- enhanced sequences were not obtained 2. No acute intracranial abnormality is seen 3. Unremarkable enhanced assessment of the internal auditory canals [address] [place] [address] Impression: 1. Non bleeding internal hemorrhoids 2. One 4 mm polyp at 60 cm proximal to the anus, removed with a cold biopsy forceps. Resected and retreived. 3. Two 2 to 3 mm polyps at 40 cm proximal to the anus 7hyperplastic polyp; repeat in 5 years (Nov 2021) 8medial menisectomy 9internal hemorrhoids, polyp 10medial menisectomy, left knee Vital Signs Most recent to oldest [Reference Range]: 1 Patient Weight 89.3 kg (06/26/24 9:35 AM) Temperature [36.5-37.9 DegC] 36.7 DegC (06/26/24 9:35 AM) Heart Rate 86 bpm (06/26/24 9:35 AM) Respiratory Rate 16 br/min (06/26/24 9:35 AM) Blood Pressure 120/78mmHg (06/26/24 9:35 AM) Cuff Pulse Pressure 42 mmHg (06/26/24 9:35 AM) BP Location # 1 Left Arm, Manual (06/26/24 9:35 AM) Social History Social History Type Response Smoking Status Never smoked cigaret nia Sex Male Sex Representation Male (finding) [facility] Outpt Note * ALBERTO Jean, Ashanti Zavala: PERFORM Event Display: [facility] Outpt Note Authored Date: Chief Complaint Routine appointment History of Present Illness Alton presents for routine follow-up of chronic HTN w/ out CHF, hyperlipidemia,gout and GERD.Our last clinic note fromJune 2023 was reviewed todayin clinic notes over the last year were also reviewed. In winter 2022 he did have a TIA-like episode. He had beensitting in a chair and when his came out to talk with him he was slumped overand unable to speak. He did have an extensive workup at the [facility] was negative. Cardiology has not found anyabnormalities in his workup toaccount for cause of TIA. They had discussed implanting a loop recorderin the event that he was having asymptomatic atrial fibrillation, which was not seen on a 30-day event monitor. He has not had any episodes since. "I will be monique. I feel like I just fell asleep so soundly." Notes that at the time that this occurred his had been recovering from back surgery and he was doing a lot of thehousework and caring for her. Recalls being very tired and suspects he fell asleep in his chairand his had not tried to wake himbefore panicking and calling the ambulance. Regardless, he does agree that if he would have any similar like TIA episode he would be agreeable to a loop recorder. Benign hypertension without CHF is chronic. Continues on losartan 50 mg dailyand HCTZ 25 mg daily. Checks BP at home "once in a while" that is around 130/80mmHg. Drinks EtOHmonthly to annually. No tobacco or recreational drug use. No recent exercise as he is limited byleft knee ost eoarthritis. He hadbeen biking regularly up until last few months and his bike 6 to 700 miles this year. No recreational drug use. No claudication, chest pain, SOB, palpitations, tachycardia, dizziness, lightheadedness, weakness, near syncope, syncope, nausea, vomiting, diarrhea, constipation, cough, LE edema, headaches, blurred vision, loss of vision, confusion or epistaxis. BPH with nocturiais chronic and at our visit last year he had declined pharmacotherapy. He is still waking1-2 times per night to void and occasionally more. Feels likehe voids more frequently during the day and stream is not as strong as it used to be. Drinks 1 to 2 cups of coffee in the morning and decaffeinated tea at night.Urinalysis and PSA were normal in June 2023. o dysuria, hematuria, low back pain,genital pain, malodorous urine, cloudy urine, dribbling, urinary incontinence, urinary urgencyor urinary retention. GERD is chronicand well controlled with use of OTC omeprazole 20 mg, 1 tablet by mouth daily.Describes heartburn as a sense of bloatingand at times burning in epigastrium, but has not had symptoms recently. He did have an EGD years ago that was reportedly normal. Colonoscopy was completed in Januarynd is due for repeat in 5 years. No abdominal pain, melena, hematochezia, nausea,vomiting, diarrhea, constipation, change in bowel habits, voice changes, dysphagia, odynophagia or unintentional weight loss. Chronic gout has been well controlled without prophylactic therapy.Has not had a gout flare in more than a few years. Hyperlipidemiais stable w/[id number] mg daily.No priorhxof CAD, CVA/TIA or PVD. Nohxof GI bleed. See socialhxand ROS above. Notes that he is scheduled to have a left T[facility] the next few weeks. Review of Systems ROS:All other systems negative, except HPI. Physical Exam Vitals & Measurements T:36.7C HR:86(Monitored) RR:16 BP:120/78 SpO2:98% WT:89.300kg(Dosing) WT:89.3kg PHQ2 Data(Data Documented on:06/26/2024 09:35) Emotional health assessment NEGATIVE General: Alert and oriented, No acute distress.Pleasant. Eye: Pupils are equal, round and reactive to light, Extraocular movements are intact, Normal conjunctiva. HENT: Normocephalic. TMs dull bilaterally. Posterior pharynx is pink. Uvula rises midline. No drooling, stridor or cyanosis. Neck: Supple, No lymphadenopathy, No thyromegaly. No audible carotid bruit. Respiratory: Lungs are clear to auscultation, Respirations are non-labored, Breath sounds are equal, Symmetrical chest wall expansion. Cardiovascular: Normal rate, Regular rhythm, No murmur, No gallop, Good pulses equal in all extremities, Normal peripheral perfusion. No LE edema. Abdomen: Normoactive BS x 4. Soft. No tenderness, palpable masses or organomegaly. Lymphatics: No submandibular, anterior or posterior cervical adenopathy palpable. Genitourinary: Declines CARLOZ. Musculoskeletal Normal gait. FROM and 5/5 strength at BLE and BUE. Integumentary: Warm, [place], No pallor. Neurologic: Alert, Oriented, Cranial Nerves II-XII are grossly intact. Cognition and Speech: Oriented, Speech clear and coherent, Functional cognition intact. Psychiatric: Cooperative, Appropriate mood & affect, Normal judgment, Nonsuicidal. Assessment/Plan 1.Benign hypertension without congestive heart failure Benign HTN without congestive heart failure is chronic and well controlled. Goal SBP <130and DBP <80mmHg. Continue losartan 50 mg daily and HCTZ 12.5 mg daily. Last clinic note and June2024 labs reviewed today. Updated CMP, lipid profileand TSH level ordered. He wouldlike to follow-up annually andhe was advised to check his blood pressure periodicallyoverthe next several months and contact the office if BP readings are consistently above goal. 2.GERD (gastroesophageal reflux disease) GERD is chronic and well controlled with use of OTC omeprazole 20 mg, 1 tab p.o. daily as needed. No alarm symptoms. Continue current regimen. 3.Gout Gout is chronic and well-controlled without prophylactic therapy. Goal is to prevent recurrence of symptoms. He does have a prescription forfor colchicine to useif needed. Uric acid level ordered. 4.Hx-TIA (transient ischemic attack) Patient did have a history of a TIAlike episode in winter 2022 with an extensive workup that was negative. He was also evaluated by cardiology who could not find sourceof symptoms. He will plan to follow back up and consider loop recorder if he would experience another episode in the future. Prior clinic notes reviewed. 5.Hyperlipidemia Hyperlipidemia is chronic and well controlled with simvastatin 20 mg, 1 tab p.o. daily. Goal LDL is <100.Lipid profile results from June 2023 reviewed today and LDL is stable at 68.Updated lipid profile and CMP ordered. 6.BPH associated with nocturia BPHwith nocturia is chronic and uncontrolled. Goal is resolution of symptoms. He did decline a CARLOZ today. Updated PSA level ordered. Urinalysis was negative last year and he has no signs of infection today. He is agreeable to trying medication. Start tamsulosin 0.4 mg, 1 tab p.o.lamine ghosh. Advised that if he is not seeingdesired improvementwithin a few weeks he may increase to2 tabs p.o. daily. Discussed trying to reduce intake of fluids, specifically caffeine and EtOH inthe evening hours. Discussed that if he is not getting relief fromtamsulosin we could try addingfinasteride or dutasteride; or urology referral.Discussed potential side effects of the medication, including, but not limited to: Dizziness, lightheadedness, hypotension, GI upset, allergic reaction. He will plan to update me via the portal withhow he is feeling in the next 1 to 2 months. Declined follow-up appointment. 7.Osteoarthritis of left knee Osteoarthritis of the left knee is chronic and uncontrolled. Goal is improvement in pain and quality of life. He is scheduled for a TKA in the near futurewith Dr. Rucker. Problem List/Past Medical History Ongoing Actinic elastosis Actinic keratoses AK (actinic keratosis) Apnea, sleep Benign hypertension without congestive heart failure Bilateral primary osteoarthritis of knee BPH associated with nocturia BPPV (benign paroxysmal positional vertigo) Changing skin lesion GERD (gastroesophageal reflux disease) Gout High pulmonary arterial pressure History of actinic keratoses History of basal cell carcinoma of skin Hx-TIA (transient ischemic attack) Hyperlipidemia Hypertension Lentigo Lesion of eye Melanocytic nevus of trunk Onychomycosis Seborrheic keratoses Seborrheic keratosis Skin tag Status post right knee replacement Weight disorder Procedure/Surgical History Shave biopsy and cauterization of skin| Service Date: 02/14/2023olonoscopy| Service Date: 01/30/2022Eye examination| Service Date: 12/14/2021Knee arthroplasty, right| Service Date: 2018Ultrasound| Service Date: 10/25/2018MRI of head| Service Date: 11/05/2017Colonoscopy| Service Date: 10/19/2016History of knee surgery| Service Date: 08/01/2014Colonoscopy| Service Date: 10/01/2012History of knee surgery| Service Date: 07/01/2003Mohs micrographic surgery Medications aspirin(aspirin 325 mg oral delayed release tablet), 325 mg= 1 tab, PO, Daily fluticasone nasal(Flonase 50 mcg/inh nasal spray), 2 spray, each nostril, Daily, 5 refills hydroCHLOROthiazide(hydroCHLOROthiazide 12.5 mg oral tablet), 1 tab, PO, Daily losartan(losartan 50 mg oral tablet), See Instructions, 3 refills omeprazole(PriLOSEC OTC 20 mg oral delayed release tablet), 20 mg= 1 tab, PO, qAM simvastatin(simvastatin 20 mg oral tablet), See Instructions, 3 refills tamsulosin(Flomax 0.4 mg oral capsule), 0.4 mg= 1 cap, PO, Daily, 3 refills Allergies NKA Social History Smoking Status Never smoked cigarettes Alcohol Use:Current Type:Beer, Wine, Liquor Frequency:1-2 times per month Employment/School Status:Retired Description:Retired. 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 Home/Environment Lives with:Spouse Living situation:Home/Independent Feels unsafe at home:No - Comments: Home has smoke and CO detectors. Wears seatbelt. Uses sun protection when cycling. Other - Comments: Has not had a blood transfusion. No tattoos and has not been incarcerated. Sexual Sexually active:Yes Self described orientation:Heterosexual Uses condoms:Yes Substance Abuse - Denies Substance Abuse Tobacco - No Risk Use:Never smoker Family History CVA: Father. Hypertension: Father and PGM. Prostate carcinoma: Brother. Stroke: PGM. Health Status Family Member(s) Mother: History is negative Immunizations Vaccine Date Status SARS-CoV-2 (COVID-19) mRNA-vacc - [id number] 08/11/2023 Recorded SARS COVID Vaccine Unspecified 03/27/2023 Recorded Comments : [employer] [facility] SARS-CoV-2 mRNA (Pfizer 12+) bivalent 09/20/2022 Recorded influenza virus vaccine, inactivated 06/13/2022 Given SARS-CoV-2 (COVID-19) mRNA-1273 vaccine 01/11/2022 Recorded Comments : 2022-06-13: Historical information-source unspecified SARS-CoV-2 (COVID-19) mRNA-1273 vaccine 07/27/2021 Recorded Comments : 2022-06-13: Historical information-source unspecified pneumococcal 23-valent vaccine 05/23/2021 Given SARS-CoV-2 (COVID-19) mRNA-1273 vaccine 12/14/2020 Recorded SARS-CoV-2 (COVID-19) mRNA-1273 vaccine 11/16/2020 Given influenza virus vaccine, inactivated 08/14/2019 Given influenza virus vaccine, inactivated 10/21/2018 Given influenza virus vaccine, inactivated 06/11/2017 Given pneumococcal 13-valent vaccine 07/18/2016 Given tetanus/diphtheria/pertuss, acel (Tdap) 07/06/2015 Given influenza virus vaccine, inactivated 07/06/2015 Given pneumococcal 23-valent vaccine 08/31/2014 Recorded zoster vaccine live 04/10/2011 Recorded diphtheria/tetanus/pertuss, acel (DTaP) 10/03/2004 Recorded Recommendations Health Maintenance Pending(in the next year) OverDue Medicare Annual Wellness Visit due10/19/18and every 1year Adult Influenza Vaccine due03/30/24and every 1year Due Adult Social Determinants of Health Screening due06/26/24Unknown Frequency Shingles Vaccine due06/26/24One-time only Satisfied(in the past 1 year) Satisfied Body Mass Index on10/09/23.Satisfied by AMEENA Corbin Heather Electronic Signature on File Electronically Reviewed/Signed by: Ashanti Jean PA-C,MPAS Author Signature Dt/Tm:0:17 AM Physician Signal Worker Helper [facility] [address] [facility], [address] [place]. [address] JAW Patient Care team information Care Team Personnel Name: ALBERTO Jean, Ashanti Zavala Position: Physician Asst [employer] - Family Med Member Role: Primary Care Provider Address: [address] [place] [address] [address] [place] [address] [place] Care Team Related Persons Name: CORY FRAZIER
[2024-07-07] MEDS: dexAMETHasone**PF** 10 MG/ML VIAL IV SCH (07:31)
[2024-07-07] MEDS: LR 60ML/HR IV SCH (07:31)
[2024-07-07] MEDS: FAMOTIDINE 20 MG TAB PO SCH (07:31)
[2024-07-07] MEDS: ACETAMINOPHEN 500 MG TAB PO SCH ×2 (07:31→13:50)
[2024-07-07] MEDS: GABAPENTIN 300 MG CAP PO SCH (07:31)
[2024-07-07] MEDS ORDERED: PROPOFOL IV EMULSION 10 MG/ML 20 ML VIAL IV ONE (07:52)
[2024-07-07] MEDS ORDERED: fentaNYL citrate PF 100 MCG/2 ML VIAL ONE (07:52)
[2024-07-07] MEDS ORDERED: MIDAZOLAM HCL 1 MG/ML 2ML VIAL ONE (07:52)
--- NOTE | 2024-07-07 07:56 | History & Physical Bridge Note ---
Date of Service July 07, 2024 History & Physical Bridge Note I have examined the patient, reviewed the History & Physical and in the interval since the performance of the History & Physical I have noted the following changes of clinical significance: no changes noted
[2024-07-07] MEDS: LR 500ML BOLUS, THEN 15ML/HR IV SCH (08:10)
[2024-07-07] MEDS ORDERED: fentaNYL citrate PF 100 MCG/2 ML VIAL IV PRN (08:33)
[2024-07-07] MEDS ORDERED: ePHEDrine sulfate 50 MG/ML AMP IV PRN (08:33)
[2024-07-07] MEDS ORDERED: ATROPINE SULFATE 0.1 MG/ML 10ML SYR IV PRN (08:33)
[2024-07-07] MEDS ORDERED: ONDANSETRON INJ 2 MG/ML 2 ML VIAL IV PRN ×2 (08:33→12:33)
[2024-07-07] MEDS: TRANEXAMIC ACID 1,000 MG **IV Pre-op IV SCH (08:40)
[2024-07-07] MEDS: ceFAZolin 2000MG 2,000 MG/15 ML SYR IV SCH ×2 (08:48→15:13)
[2024-07-07] MEDS ORDERED: DexMEDEtomidine HCL IV 100 MCG/ML VIAL IV ONE (08:55)
[2024-07-07] MEDS ORDERED: ONDANSETRON INJ 2 MG/ML 2 ML VIAL ONE (08:57)
[2024-07-07] MEDS ORDERED: PHENYLEPHRINE 100MCG/ML 10ML SYR IV ONE ×2 (09:05→09:59)
[2024-07-07] MEDS: ORTHO JOINT ANESTHETIC ONE (09:14)
[2024-07-07] MEDS: ROPIV 0.5% 246mg, Ketorolac 30mg, EPINEPHrine 0.5mg in NSS INFIL SCH (09:14)
[2024-07-07] MEDS ORDERED: ePHEDrine sulfate 50 MG/5 ML SYR ONE (09:27)
--- NOTE | 2024-07-07 10:05 | Operative Report ---
PG Post Operative Report Pre & Post Diagnosis Operation Date: 07/07/24 09:00 Pre-Op Diagnosis: Degenerative Joint Disease Left Knee Post-Op Diagnosis: Degenerative Joint Disease Left Knee I identified the patient and participated in the time-out.: Yes Procedure Operation Date: 07/07/24 09:00 Actual Procedures p Left Total Knee Arthroplasty(Left) - Xavier Rucker DO Surgeon Xavier Rucker DO Fuel Cell Technician Xavier Brown PA-C Estimated Blood Loss 30 Findings Consistent with Post-Op Diagnosis Specimens Left femoral tibial bone Description of Procedure Implants used: I used a Christopher Persona total knee arthroplasty system with a size 8 standard PS femur, F tibia, 31 oval patella, and a size 12 CPS polyethylene bearing. All components were cemented in place with Biomet cement. [facility] for the above procedure. He was seen in the preoperative holding area and the operative extremity was identified and signed. He was given a preoperative antibiotic, TXA, a spinal anesthetic and an adductor nerve block. He was taken back to the operating room and laid on the table in supine position. He was given basic sedation. The operative knee was then prepped and draped in sterile fashion. A timeout was done, and the patient and the operative extremity was properly identified. A midline incision was made directly over the patella. Dissection was taken down to the extensor mechanism. A subvastus arthrotomy was used. The medial retinaculum was released and the fat pad was mostly excised. The knee was flexed and the ACL, PCL, and meniscus were removed. A drill was sent down the center of the femoral canal followed by an intramedullary chio. Off that chio a distal femoral cutting block was placed. 9 mm was resected off the distal femur at 5 of valgus. A posterior referencing AP sizing guide was then placed on the distal femur. The femur measured to be a size 8. 2 drill holes were placed in 3 of external rotation. A 4-in-1 cutting block was then impacted into place. Anterior, posterior, and chamfer cuts were then made. The proximal tibia was then exposed. An external tibial alignment guide was placed. A tibial cut guide was then anchored in place and the proximal tibia was then resected. The posterior aspect of the knee was then opened up and any additional meniscus fragments and osteophytes were removed. The tibia measured to be a size F. The tibial plate was then placed in the appropriate rotation and the tibia was drilled and punched. Trial components were then placed. I used a size 12 CPS polyethylene insert. The knee was brought through a full range of motion and felt to be stable. The peg holes for the femoral component were then drilled. The patella was then everted and 9 mm was resected off the posterior aspect of the patella. The patella measured to be a size 31 oval. 3 peg holes were then drilled. A trial patella was placed. The knee was once again brought through a full range of motion and felt to be stable. Trial components were then removed. The surrounding soft tissues were injected with 100 cc of an orthopedic pain control cocktail. All components were then cemented into place with Biomet cement. The final polyethylene insert was then snapped into place. Once cement was dry the tourniquet was deflated. Hemostasis was obtained. A dilute betadyne lavage was then done for 3 minutes. The joint was then irrigated with normal saline solution. The subvastus arthrotomy was then closed with #1 Vicryl suture. The skin was closed with 2-0 Vicryl, 3-0V lock suture, and laurie. A soft compressive dressing was placed. He was then transferred to a hospital bed and taken to the postanesthesia care unit in stable condition. He tolerated the procedure well. Xavier Brown PA-C, was present for the entire procedure. He was critical for patient positioning, prepping, draping, retraction exposure, wound closure and application of sterile dressing. I attest to the content of the Intraoperative Record and any orders documented therein. Any exceptions are noted below.
[2024-07-07] MEDS: TRANEXAMIC ACID 1,000 MG **IV Intra-op IV SCH (10:06)
--- NOTE | 2024-07-07 10:58 | XRay Report ---
TWO VIEWS LEFT KNEE CLINICAL HISTORY: Postoperative examination. FINDINGS: AP and crosstable lateral portable views of the left knee are obtained. A left knee arthrop lasty is in near anatomic alignment. There has been undersurface remodeling of the patella. No acute fracture is seen. There are expected postoperative changes around the knee including skin clips, soft tissue edema, and subcutaneous gas. IMPRESSION: Expected postoperative changes status post left knee arthroplasty. No acute fracture is s een. ACT 112: Negative or not required by law. Electronically signed by: Michael Hua M.D. 07/07/2024 10:57 AM
--- NOTE | 2024-07-07 12:09 | Anesthesiology Progress Note ---
Date of Service July 07, 2024 Anesthesia Post Procedure Vital Signs Vital Signs: Temp Pulse Pulse Resp BP Pulse Ox O2 Del Method 07/07/24 12:00 98 H 21 108/69 94 Nasal Cannula 07/07/24 11:50 99 H 16 102/69 96 Nasal Cannula 07/07/24 11:40 92 H 19 90/69 L 94 Nasal Cannula 07/07/24 11:30 99.3 F 93 H 23 111/71 93 Nasal Cannula 07/07/24 11:20 90 14 100/61 94 Nasal Cannula 07/07/24 11:10 93 H 17 103/67 94 Nasal Cannula 07/07/24 11:00 97.5 F L 99 H 15 106/63 95 Nasal Cannula 07/07/24 10:50 94 H 17 99/61 L 92 Oxymask 07/07/24 10:40 94 H 17 97/61 L 95 Oxymask 07/07/24 10:30 95 H 16 97/58 L 97 Oxymask 07/07/24 10:24 97.7 F 98 H 18 94/58 L 97 Oxymask 07/07/24 07:23 98.2 F 109 H 20 153/81 H 95 Room Air O2 Flow Rate 07/07/24 12:00 2 07/07/24 11:50 2 07/07/24 11:40 2 07/07/24 11:30 2 07/07/24 11:20 4 07/07/24 11:10 4 07/07/24 11:00 4 07/07/24 10:50 5 07/07/24 10:40 5 07/07/24 10:30 13 07/07/24 10:24 13 07/07/24 07:23 Transfer of Care Handoff Completed per policy Notes Mental Status: alert / awake / arousable and participated in evaluation Patient Amnestic to Procedure: Yes Nausea / Vomiting: adequately controlled Pain: adequately controlled Airway Patency, RR, SpO2: stable & adequate BP & HR: stable & adequate Hydration State: stable & adequate Neuraxial Anesthesia: was administered and sensory block is resolving Anesthetic Complications: no major complications apparent and Pt Satisfied with anesthetic care
[2024-07-07] MEDS ORDERED: FLUTICASONE PROPIONATE NA SPR 16 GM BTL PRN (12:33)
[2024-07-07] MEDS ORDERED: HYDROmorphone INJ 0.5 MG/0.5 ML SYR IV PRN (12:33)
[2024-07-07] MEDS ORDERED: MAGNESIUM HYDROXIDE SUSP 30 ML UDC PO PRN (12:33)
[2024-07-07] MEDS ORDERED: oxyCODONE HCL IR 5 MG TAB (IMMEDIATE RELEASE) PO PRN (12:33)
[2024-07-07] MEDS ORDERED: METOCLOPRAMIDE HCL INJ 5 MG/ML 2 ML VIAL IV PRN (12:33)
[2024-07-07] MEDS ORDERED: bisacodyL 10 MG SUPP PR PRN (12:33)
[2024-07-07] MEDS ORDERED: NALOXONE HCL 0.4 MG/1 ML VIAL/CARP IV PRN (12:33)
[2024-07-07] MEDS ORDERED: NON-FORMULARY MEDICATION (Ciclopirox 8 % solution) TOP PRN (12:33)
[2024-07-07] MEDS: SODIUM CHLORIDE 0.9% 1,000 ML IV SCH (13:20)
[2024-07-07] MEDS: KETOROLAC TROMETHAMINE 15 MG/ML VIAL IV SCH (13:51)
[2024-07-07] MEDS: ASPIRIN 81 MG ECTAB PO SCH (20:32)
[2024-07-07] MEDS: hydroCHLOROthiazide 25 MG TAB PO SCH (20:33)
[2024-07-07] MEDS: SIMVASTATIN 20 MG TAB PO SCH (20:34)
[2024-07-07] MEDS: LOSARTAN POTASSIUM 50 MG TAB PO SCH (20:34)
[2024-07-07] MEDS: SENNA 8.6 MG TAB PO SCH (20:35)
[2024-07-07] MEDS: DOCUSATE SODIUM 100 MG CAP PO SCH (20:35)
--- NOTE | 2024-07-08 07:09 | Orthopedic Progress Note ---
Date of Service July 08, 2024 Assessment & Plan (1) Status post left knee replacement: Overall he is doing fairly well. He is not having much pain in the left knee. He will be seen by physical therapy today for ambulation and range of motion exercises. The nursing staff can change his dressing after physical therapy. He is on aspirin for DVT prophylaxis. He can be discharged home later today. He will follow-up with orthopedics in 2 weeks. Mendy Dang was seen and examined at bedside this morning. Overall he is doing fairly well. He is not having much pain in the left knee. He has been up and ambulating to the bathroom. He has no complaints.. Review of Systems All systems reviewed & are unremarkable except as noted in HPI & below. Physical Exam On physical exam of the left knee, the dressing is clean and dry. His leg is out full extension. He has active dorsiflexion plantarflexion of his left ankle.. Results & Data Results & Data Laboratory Results . Diagnostic Findings Postoperative x-rays of the left knee show the prosthesis to be in anatomic alignment without any evidence of fracture complication, or loosening.. PG Care Time/CCT Total # of Minutes Spent Total Time Spent with Patient: Total time spent is greater than 50% in coordination of care (as documented) at patient's floor/unit and/or counseling patient: Coding Level of Care Code 71834 Post Operative Follow-Up Diagnoses Status post left knee replacement Z96.652
--- NOTE | 2024-07-08 07:09 | Discharge Summary ---
Date of Service July 08, 2024 Principal Diagnosis Same as "Discharge Diagnosis" noted below under Discharge Instructions. Discharge Exam On physical exam of the left knee, the dressing is clean and dry. His leg is out full extension. He has active dorsiflexion plantarflexion of his left ankle.. Discharge Data Procedures Performed Operation Date: 07/07/24 09:00 Actual Procedures p Left Total Knee Arthroplasty(Left) - Xavier Rucker DO Ordered Studies 07/07/24 05:00 US - OR guided needle placemen Routine Hospital Course (1) Status post left knee replacement: On July 07, [address] [facility] and underwent a left knee replacement without complication. He had a spinal anesthetic. Postoperatively he was started on aspirin for DVT prophylaxis and transferred to the general orthopedic floors. His hospital course is uneventful. On postop day #1, his vital signs were stable and his pain was well-controlled. He was able to participate well with physical therapy doing ambulation and range of motion exercises. He was then discharged to home. He will follow-up with orthopedics in 2 weeks. PG Care Time/CCT Total # of Minutes Spent Total Time Spent with Patient: Total time spent is greater than 50% in coordination of care (as documented) at patient's floor/unit and/or counseling patient: Discharge Plan Discharge Items Patient Disposition: Home - Self-Care Reason For Visit: Degenerative Joint Disease Left Knee Discharge Diagnosis: Left knee replacement Activity: Per Instructions section Non-emergency contact: Surgeon Call non-emergency contact if: your wound has increased redness and your wound has increased drainage Follow-up/Referrals: Ashanti Jean PA-C [Primary Care Provider] - Diet: Regular Addtl Attending Provider Instructions: Activity and Therapy Recommendations: * If you are using [facility] then therapy will be provided at your home until they feel you have accomplished all of your goals. * If you are using [facility] then Physical Therapy will be provided until they feel you are ready to start Outpatient Physical Therapy. * If you are not using home therapy then Outpatient Physical Therapy should start about 3-5 days from your day of surgery. Therapy will last about 6-10 weeks * It is important not to put a pillow under your knee when you are relaxing or sleeping. It is just as important to make sure you are getting your knee perfectly straight as it is to regain your knee bend. * You were shown a series of exercises in the hospital. Do these exercises three times each day including the exercises you were shown in physical therapy. * Get up and walk several times each day. For the first four weeks, try not to stand or walk for more than one hour at a time. If you do stand or walk for more than one hour, you will not hurt anything, but your leg will likely swell. * As you feel comfortable, you may change from the walker or crutches to a cane and then to independent walking. Medications: * Narcotic You will likely be sent home from the hospital with a prescription for the narcotic pain medication that worked best throughout your stay. * Cefadroxil -take the antibiotic twice a day for 10 days to help prevent infection. * Aspirin Most patients will be required to take Aspirin 81mg twice a day for 6 weeks after surgery. This is obtained [id number] and a prescription is not necessary. * Other medications may be prescribed for specific circumstances. If you have any questions, please call the office at . * Resume previous home medications unless otherwise instructed TEDs/Elastic Stockings: The white elastic stockings help limit swelling and prevent blood clots from forming in your legs.~ The more you wear them, the more they work. Wear them for six weeks. Dressing Care: The dressing can be changed after physical therapy on postop day #1. Daily dry dressing changes for a few days, especially if the incision is still draining some. If the incision is not draining then you may leave the laurie open to air. If there is a little bit of drainage or if the laurie are getting stuck on your clothing then cover the incision with a dry dressing. The laurie will be removed at your 2 week follow-up appointment. Showering: You may shower 5 days from the day of surgery as long as the incision is no longer draining. You may shower with the laurie exposed. Let soapy water run over the laurie and pat them dry. Do not scrub or soak the incision. Diet: You may resume your previous diet. Things To Watch For: * Drainage from the incision site that occurs more than one week after your surgery. * Increased redness at the incision site. * Fever above 102 degrees Fahrenheit. * Unusual chest pain or shortness of breath. * Call [facility] at with any of the above problems Follow-Up Visit: Follow-up with Dr. Rucker's PA (Xavier Brown) 2-3 weeks after your day of surgery. He will remove your laurie and answer any questions. If you have any additional questions or concerns, Dr Rucker is usually in the office at the same time and will be available An appointment was probably scheduled when you signed-up for surgery in the office. If you have any questions call Office Instructions: More detailed instructions as well as Frequently Asked Questions were provided in a folder by our office when you signed-up for surgery. Please review these instructions when you get home. If you have any further questions or concerns, please feel free to call the office at [phone] Pending Studies at Discharge: No Stand-Alone Forms: [facility], Smoking Cessation Medications and DC Order Prescriptions: New oxycodone 5 mg Tablet 5 mg PO Q4H PRN (Reason: pain) Qty: 30 0RF cefadroxil 500 mg capsule 500 mg PO BID 10 Days Qty: 20 0RF Continued omeprazole magnesium [Prilosec OTC] 20 mg Tablet,Delayed Release (Dr/Ec) 20 mg PO QAM losartan 50 mg tablet 50 mg PO HS hydrochlorothiazide 12.5 mg tablet 12.5 mg PO HS multivitamin Tablet 1 tab PO QAM ciclopirox 8 % solution 1 applic TOPICAL DAILY PRN (Reason: Toe Fungus) simvastatin 20 mg tablet 20 mg PO HS fluticasone propionate 50 mcg/actuation spray,suspension 2 spray INTRANASAL DAILY PRN (Reason: Congestion) [id number] mg Capsule 1 cap PO QAM Changed aspirin 81 mg Tablet,Delayed Release (Dr/Ec) 81 mg PO BID 42 Days Qty: 0 0RF Discharge Orders: Discharge Order (Routine); Ordered 07/08/24 Ordered By: Xavier Rucker Admission Data Admit Date/Time: 07/07/24 09:22 Attending Provider: Xavier Rucker Admit Provider: Xavier Rucker Primary Care Provider: Ashanti Jean
[2024-07-08] MEDS: MULTIVITAMIN TAB PO SCH (07:59)
[2024-07-08] MEDS: dexAMETHasone 4 MG TAB PO SCH (07:59)
[2024-07-08 08:07] VITALS: BP 117/69; RESP 16; TEMP 97.9; O2SAT 94
[2024-07-08 10:39] VITALS: PULSE 90
== END 2024-07-08 11:17 | disposition home or self-care (01) ==
LOC: ASU 06:55 → 3W 06:55